=== PATIENT | male | born 1975 | race Caucasian/White ===

== ENCOUNTER 2017-09-05 21:48 | Emergency (ER) | payer BC ==
[~2017-09-05] VITALS: Ht 170.2 cm; Wt 92.5 kg
[2017-09-05 23:18] LABS: CALCIUM 8.9 mg/dL (8.5-10.1); CHLORIDE SERUM 101 mmol/L (98-107); GFR1 > 60 mL/min; GLUCOSE SERUM 93 mg/dL (74-106); POTASSIUM SERUM 3.6 mmol/L (3.5-5.1); SODIUM SERUM 140 mmol/L (136-145)
[2017-09-05 23:21] LABS: BASOPHIL % 0.6 % (0-2); PLATELET COUNT 253 x10^3mcL (130-400); RED CELL DISTRIBUTION WIDTH 11.9 % (11.5-14.5)
[2017-09-05 23:23] LABS: ALBUMIN 3.9 g/dL (3.4-5.0); ALKALINE PHOSPHATASE 80 U/L (46-116); ALT/SGPT 28 U/L (16-63); AST/SGOT 23 U/L (15-37); BILIRUBIN TOTAL 0.5 mg/dL (0.20-1.00); TOTAL PROTEIN, SERUM 7.1 g/dL (6.4-8.2)
[2017-09-05 23:54] VITALS: BP 131/77
== END 2017-09-05 23:54 | disposition home or self-care (01) ==
LOC: ED 21:48
PROVIDERS: Emergency Medicine
DX: R07.89 Other chest pain (principal); I10 Essential (primary) hypertension; E78.5 Hyperlipidemia, unspecified; E78.00 Pure hypercholesterolemia, unspecified
CPT/HCPCS: 36415; 83880; Q0092